=== PATIENT | female | born 2000 | race American Indian/Alaskan Native ===

== ENCOUNTER 2021-10-02 20:18 | Outpatient (CLI) | payer MEDICAID ==
[2021-10-02] MEDS ORDERED: LACTATED RINGERS 500 ML IV ONE (20:45)
[2021-10-02 21:05] VITALS: BP 113/70
== END 2021-10-02 21:52 | disposition home or self-care (01) ==
LOC: TRG 20:18 → APU 20:20 → TRG 21:52
PROVIDERS: ATTEND Obstetrics & Gynecology
DX: Z34.92 Encounter for supervision of normal pregnancy, unspecified, second trimester (principal); Z3A.25 25 weeks gestation of pregnancy
CPT/HCPCS: 59025